=== PATIENT | female | born 1995 | race Caucasian/White ===

== ENCOUNTER → 2023-02-14 | Outpatient (CLI) | payer BC, SELFPAY ==
--- NOTE | 2023-02-14 09:21 | RAD_ITS ---
STUDY: X-RAY - LEFT ANKLE REASON FOR EXAM: Female, 28 years old. Lateral ankle pain following a fall. TECHNIQUE: 3 view(s) of the ankle. COMPARISON: None. FINDINGS: Normal visualized distal tibia and fibula. Normal medial and lateral malleoli. Normal tibiotalar articulation and ankle mortise. Normal visualized talus and calcaneus. The visualized subtalar, talonavicular, calcaneocuboid and tarsal articulations are normal. Lateral soft tissue swelling. RAD/Ankle min 3 Views IMPRESSION: Lateral soft tissue swelling. Electronically Signed: Michael Linares MD at 10:05 EDT ,
--- NOTE | 2023-02-14 09:23 | RAD_ITS ---
STUDY: X-RAY - LEFT FOOT CLINICAL: Female, 28 years old. Lateral foot pain following a fall. TECHNIQUE: 3 view(s) of the foot. COMPARISON: None. FINDINGS: Normal talus, calcaneus, and tarsal bones. Normal visualized subtalar, talonavicular, calcaneocuboid, tarsal and tarsometatarsal articulations. Normal metatarsi. Normal metatarsophalangeal joint of the great toe. Normal tibial and fibular sesamoid bones. Normal interphalangeal joint of the great toe. Normal phalanges of the great toe. Normal second through fifth metatarsophalangeal joints. Normal interphalangeal joints and phalanges of the lesser toes. The soft tissue structures are unremarkable. RAD/Foot min 3 Views IMPRESSION: Normal x-ray examination of the foot. Electronically Signed: Michael Linares MD at 10:30 EDT ,
== END | disposition home or self-care (01) ==
PROVIDERS: Referring Provider Physician Assistant; Visit Provider Physician Assistant
DX: S99.912A Unspecified injury of left ankle, initial encounter (principal)
CPT/HCPCS: 73610; 73630